=== PATIENT | female | born 1940 | race Caucasian/White ===

== ENCOUNTER 2016-08-25 13:40 | Inpatient (IN) | payer MEDICARE, MEDICAID ==
[~2016-08-25] VITALS: Ht 167.6 cm; Wt 85.8 kg
[2016-08-25] MEDS ORDERED: NS IV 1000 ML 1,000 ML IV SCH (13:44)
[2016-08-25] MEDS ORDERED: ONDANSETRON 4 MG/2 ML (SDV) Z0FRAN IVP PRN (13:45)
[2016-08-25] MEDS ORDERED: fentaNYL INJECTION 100 MCG/2 ML AMP IVP PRN (13:45)
[2016-08-25] MEDS ORDERED: ALPRAZolam 0.25 MG (XANAX) TAB PO PRN (13:45)
[2016-08-25] MEDS ORDERED: ACETAMINOPHEN 500 MG TAB (TYLENOL) PO PRN (13:45)
[2016-08-25] MEDS ORDERED: HYDROcodone/APAP 5 MG/325 MG (LORTAB) TAB PO PRN (13:45)
[2016-08-25 15:50] VITALS: BP 103/57
[2016-08-25] MEDS ORDERED: NOREPINEPHRINE 4 MG/4 ML (LEVOPHED) AMP IV ONE (16:36)
[2016-08-25] MEDS ORDERED: D5W 250 ML (IVPB) 250 ML IV ONE (16:36)
[2016-08-25] MEDS ORDERED: NOREPINEPHRINE 4 MG in D5W 250 ML (IVPB) 250 ML IV SCH (16:45)
--- NOTE | 2016-08-25 16:52 | Diagnostic Imaging Report ---
INDICATION: Hypoxia. FINDINGS: There is mild elevation of the right diaphragm. The heart size is at the upper limits. There is some perihilar congestion and partial atelectasis. No effusion or pneumothorax. IMPRESSION: Upper limits heart size and prominence of the central vascularity as well as some perihilar atelectasis. No focal pneumonia or pleural abnormality. Dictated by: Dictated on workstation # [id number]
[2016-08-25 17:00] VITALS: BP 95/57
[2016-08-25] MEDS ORDERED: RT-ALBUTEROL/IPRATROPIUM 3 ML (DUONEB) VIAL INH PRN (17:00)
[2016-08-25 17:29] LABS: BASOPHILS % (AUTO) 0 % (0-10); EOSINOPHILS % (AUTO) 0 % (0-10); LYMPHOCYTES # (AUTO) 0.9 X 10^3 (1.0-4.0); LYMPHOCYTES % (AUTO) 3 % (12-44); MEAN CORPUSCULAR HEMOGLOBIN 30 PG (25-34); MEAN CORPUSCULAR HGB CONC 32 G/DL (32-36); MEAN CORPUSCULAR VOLUME 95 FL (80-99); MEAN PLATELET VOLUME 11.3 FL (7.4-10.4); MONOCYTES # (AUTO) 1.7 X 10^3 (0.0-1.0); MONOCYTES % (AUTO) 6 % (0-12); NEUTROPHILS # (AUTO) 28.7 X 10^3 (1.8-7.8); NEUTROPHILS % (AUTO) 91 % (42-75); PLATELET COUNT 103 10^3/uL (130-400); RED BLOOD COUNT 4.35 10^6/uL (4.35-5.85); RED CELL DISTRIBUTION WIDTH 14.3 % (10.0-14.5)
[2016-08-25 17:30] LABS: WHITE BLOOD COUNT 31.3 10^3/uL (4.3-11.0)
[2016-08-25] MEDS ORDERED: NS IV 1000 ML 1,000 ML IV ONE (17:30)
[2016-08-25] MEDS ORDERED: ATOR20TA66 PO (17:41)
[2016-08-25] MEDS ORDERED: MEMA28CA PO (17:41)
[2016-08-25] MEDS ORDERED: ACET-2422 PO (17:41)
[2016-08-25] MEDS ORDERED: CETI1TAB61 PO (17:41)
[2016-08-25] MEDS ORDERED: MELO7.5T46 PO (17:41)
[2016-08-25] MEDS ORDERED: MULT1TAB69 PO (17:41)
[2016-08-25] MEDS ORDERED: D50KC PO (17:41)
[2016-08-25] MEDS ORDERED: COCO1000 PO (17:41)
[2016-08-25] MEDS ORDERED: GLUC1CAP37 PO (17:41)
[2016-08-25] MEDS ORDERED: GABA-488 PO (17:41)
[2016-08-25] MEDS ORDERED: POLY119P5 PO (17:41)
[2016-08-25] MEDS ORDERED: SULF200O PO (17:41)
[2016-08-25] MEDS ORDERED: CALC1TAB94 PO (17:41)
[2016-08-25] MEDS ORDERED: LEVO75TA6 PO (17:41)
[2016-08-25 17:43] LABS: ALBUMIN 3.2 G/DL (3.2-4.5); BILIRUBIN,TOTAL 0.5 MG/DL (0.1-1.0); CREATININE SERUM 1.49 MG/DL (0.60-1.30); POTASSIUM 3.5 MMOL/L (3.6-5.0); TOTAL PROTEIN 5.6 G/DL (6.4-8.2)
[2016-08-25 17:49] LABS: BAND NEUTROPHILS 21 %; BASOPHILS % (MANUAL) 0 %; EOSINOPHILS % (MANUAL) 0 %; LYMPHOCYTES % (MANUAL) 1 %; METAMYELOCYTES % 1 %; NEUTROPHILS % (MANUAL) 75 %
[2016-08-25 18:00] VITALS: BP 137/59
[2016-08-25] MEDS ORDERED: ENOXAPARIN 40 MG/0.4 ML (LOVENOX) SYR SC SCH (18:05)
[2016-08-25] MEDS ORDERED: VANCOMYCIN 2000 MG/NS 500 ML IVPB IV NR ×2 (18:09)
--- NOTE | 2016-08-25 18:11 | Pulmonary Consultation ---
History of Present Illness History of Present Illness Date of Consultation 08/25/16 18:06 Date of Admission History of Present Illness 76yo who is normally bedridden and severely demented presented secondary to septic shock. Pt has required pressor support. unable to obtain ROS. I am consulted for CC management. Allergies and Home Medications Allergies Coded Allergies: No Allergy Information Available (Unverified , 08/25/16) Home Medications Lorazepam 2 Mg/1 Ml Oral.conc, 2 MG PO Q3HR, #30 Prescribed by: SHANA SALEH on 08/28/16927 Morphine Sulfate 100 Mg/5 Ml Solution, 5 MG PO Q2H PRN for PAIN, #30 Prescribed by: SHANA SALEH on 08/28/16927 Past Wfyleqq-Uvnaku-Lmwprr Hx Patient Social History Alcohol Use: Denies Use Recreational Drug Use: No Smoking Status: Unknown if Ever Smoked Recent Foreign Travel: No Contact w/Someone Who Travel: No Recent Infectious Disease Expo: No Recent Hopitalizations: No Physical Abuse Screen: No Sexual Abuse: No Seasonal Allergies Seasonal Allergies: No Gastrointestinal Gastrointestinal Disorders: Gastroesophageal Reflux Psychosocial Behavioral Health Disorders: Anxiety, Depression Review of Systems Constitutional: No: Chills, Fever, Malaise, Other, Sweats, Weakness Eyes: No: Conjunctivae inflammation, Eyelid inflammation, Other, Pain, Redness , Vision change ENT: No: Ear discharge, Ear pain, Mouth pain, Mouth swelling, Nose congestion, Nose discharge, Nose pain, Other, Throat pain, Throat swelling Respiratory: SOB with excertion, Shortness of breath, No: Cough, Dry, Hemoptysis, Other, Pleuritic Pain, Sputum, Wheezing, Wheezing Cardiovascular: No: Chest Pain, Edema, Lt Headedness, Orthopnea, Other, Palpitations, Paroxysmal Noc. Dyspnea Gastrointestinal: No: Abdominal Pain, Constipation, Diarrhea, Hematochezia, Melena, Nausea, Other, Vomiting Neurological: Confusion, Weakness Exam Exam Vital Signs Date Time Temp Pulse Resp B/P (MAP) Pulse Ox O2 Delivery O2 Flow Rate FiO2 08/25/16 16:46 94 4.00 08/25/16 16:36 94 08/25/16 15:50 101.8 126 24 103/57 100 Nasal Cannula 6.00 General Appearance: WD/WN, Moderate Distress Neck: Full Range of Motion, Normal Inspection Respiratory: Chest Non Tender, No Accessory Muscle Use, No Respiratory Distress , Decreased Breath Sounds Capillary Refill: Less Than 3 Seconds Gastrointestinal: normal bowel sounds, non tender Neurologic/Psychiatric: Alert, Oriented x3 Skin: Normal Color, Warm/Dry Results Lab Laboratory Tests 08/25/16 17:15 Assessment/Plan Assessment/Plan -Severe Sepsis with UTI -currently on Merrem metabolic encephalopathy -Septic shock -PT is normally nonverbal and bedbound chronic debility I discussed with family pts condition severe septic shock and high mortality rate especially with her chronic debility. Pt is already a DNR. After discussion family including and daughter are in agreement with comfort care only. They do understand pt will probably in 12-24 hrs without medical treatment. They just want her to be comfortable. - Clinical Quality Measures DVT/VTE Risk/Contraindication: Risk Factor Score Per Nursin RFS Level Per Nursing on Admit: 4+=Very High GOPI MOON DO Aug 25, 2016 18:11
[2016-08-25] MEDS ORDERED: PHARMACY TO DOSE IV SCH (18:15)
[2016-08-25] MEDS ORDERED: morphine INJ 4 MG/ML 1 ML (VIAL/SYRINGE) ONE (18:36)
[2016-08-25] MEDS ORDERED: LORazepam INJ 2 MG/ML (ATIVAN) VIAL ONE (18:38)
[2016-08-25] MEDS ORDERED: morphine INJ 4 MG/ML 1 ML (VIAL/SYRINGE) IVP PRN (18:45)
[2016-08-25] MEDS: LORazepam INJ 2 MG/ML (ATIVAN) VIAL IVP PRN ×2 (18:47→23:30)
[2016-08-25] MEDS: morphine INJ 4 MG/ML 1 ML (VIAL/SYRINGE) IVP PRN ×2 (18:47→23:31)
[2016-08-25] MEDS ORDERED: CATHETER FLUSH 10 ML SYR IV PRN (19:00)
[2016-08-25] MEDS ORDERED: RT-ALBUTEROL/IPRATROPIUM 3 ML (DUONEB) VIAL INH SCH (21:00)
[2016-08-25] MEDS ORDERED: MEROPENEM 500 MG in NS (IVPB) 100 ML IV SCH (22:00)
[2016-08-25] MEDS: CATHETER FLUSH 10 ML SYR IV SCH (22:00)
[2016-08-26] MEDS: morphine INJ 4 MG/ML 1 ML (VIAL/SYRINGE) IVP PRN ×7 (01:53→22:40)
[2016-08-26] MEDS: LORazepam INJ 2 MG/ML (ATIVAN) VIAL IVP PRN ×4 (01:53→13:40)
[2016-08-26] MEDS: CATHETER FLUSH 10 ML SYR IV SCH ×3 (01:53→20:45)
--- NOTE | 2016-08-26 08:21 | Pulmonary Progress Note ---
Standard Progress Note Progress Notes PT is very comfortable family at bedside. Assessment & Plan -Severe Sepsis with UTI metabolic encephalopathy -Septic shock -PT is normally nonverbal and bedbound chronic debility Pt is comfort care only now per family request. - GOPI MOON DO Aug 26, 2016 08:21
--- NOTE | 2016-08-26 10:54 | History & Physical-Hospitalist ---
HPI History of Present Illness: HPI/Chief Complaint CC: Septic shock with end of life status HPI: This is a patient that is normally bedridden and severely demented that presented from [facility] due to septic shock that was requiring pressor therapy along with IV fluid resuscitation in need of higher level of care. She was accepted without hesitation was found to be severely debilitated chronically and Dr. Marshall saw the patient in the ICU found her to be end of life and comfort care was initiated and currently she is on protocol showing no signs of discomfort. gi asst: Pt is not alert at all. Pt does not want pt go back to [place]. Pt would not wake up at [place] to drink and pt was dehydrated upon arrival. Patient Interview: Pt is unresponsive. Pt states pt appears to be comfortable. Pt states once in a while pt looks like she may be in pain. Pt family is glad that [facility] accepted her and did all they could for her. Scribed by Sawyer Sifuentes under the direct supervision of Dr. Palmer. Source: family, RN/MD Exam Limitations: clinical condition Date Seen 08/26/16 Attending Physician Toshia Palmer DO PCP No,Local Physician Referring Physician Date of Admission Aug 25, 2016 at 16:04 Home Medications & Allergies Home Medications Reviewed patient Home Medication Reconciliation Form Allergies Allergies Coded Allergies No Allergy Information Available (Unverified08/25/16) Past Ubdvunm-Smeekm-Vnwnfd Hx Patient Social History Marrital Status: Employed/Student: retired Alcohol Use: Denies Use Recreational Drug Use: No Smoking Status: Unknown if Ever Smoked Physical Abuse Screen: No Sexual Abuse: No Recent Foreign Travel: No Contact w/other who traveled: No Recent Hopitalizations: No Recent Infectious Disease Expo: No Seasonal Allergies Seasonal Allergies: No Neurological Hx Neurological Disorders: Yes Neurological Disorders: Dementia Gastrointestinal Gastrointestinal Disorders: Gastroesophageal Reflux Psychosocial Behavioral Health Disorders: Anxiety, Depression Review of Systems ROS-Unable to Obtain: unable to ascertain due to severe dementia and comatose state Constitutional: see HPI Physical Exam Physical Exam Vital Signs Vital Sign - Last 12Hours 08/25/16 15:50 Temp 101.8 Pulse 126 Resp 24 B/P (MAP) 103/57 Pulse Ox 100 O2 Delivery Nasal Cannula O2 Flow Rate 6.00 Capillary Refill : Less Than 3 Seconds General Appearance: No Apparent Distress, Chronically ill, Obese Respiratory: Crackles, Decreased Breath Sounds Cardiovascular: Tachycardia Skin: Cool, Cyanosis, Mottled Results Results/Procedures Lab Laboratory Tests 08/25/16 17:15 Assessment/Plan Admission Diagnosis Assessment: Septic shock likely due to UTI causing end-of-life status Severe dementia with bedridden status Assessment and Plan Plan: Comfort Care Palliative care nurse Support in the end-of-life stage Clinical Quality Measures DVT/VTE Risk/Contraindication: Risk Factor Score Per Nursin RFS Level Per Nursing on Admit: 4+=Very High TOSHIA PALMER DO Aug 26, 2016 10:54
[2016-08-26] MEDS ORDERED: ONDANSETRON 4 MG/2 ML (SDV) Z0FRAN IVP PRN (17:45)
[2016-08-26] MEDS ORDERED: SCOPOLAMINE 1.5 MG (TRANSDERM-SCOP) PATCH TOP SCH (17:45)
[2016-08-26] MEDS ORDERED: BISACODYL 10 MG SUPP (DULCOLAX) PR PRN (17:45)
[2016-08-26] MEDS ORDERED: SALIVA STIMULANT MOUTH SPRAY (BIOTENE) 1.5 OZ MM PRN (17:45)
[2016-08-26] MEDS ORDERED: LORazepam INJ 2 MG/ML (ATIVAN) VIAL IVP PRN (17:45)
[2016-08-26] MEDS ORDERED: ARTIFICAL TEARS 0.4 ML UNIT DOSE (REFRESH PLUS) OU PRN (17:45)
[2016-08-26] MEDS ORDERED: ACETAMINOPHEN 650 MG SUPP (TYLENOL) PR PRN (17:45)
[2016-08-26] MEDS ORDERED: ARTIFICIAL TEARS OINT (LACRI-LUBE) 3.5 GM TUBE OU PRN (17:45)
[2016-08-26] MEDS ORDERED: PROMETHAZINE INJ 25 MG/ML (PHENERGAN) AMP IVP PRN (17:45)
[2016-08-26] MEDS ORDERED: ATROPINE 1% OPHTHALMIC SOLN 2 ML SL PRN (17:45)
[2016-08-26] MEDS ORDERED: RT-ALBUTEROL/IPRATROPIUM 3 ML (DUONEB) VIAL INH PRN (17:45)
[2016-08-26] MEDS ORDERED: morphine INJ 4 MG/ML 1 ML (VIAL/SYRINGE) IV PRN (17:45)
[2016-08-26] MEDS: GLYCOPYRROLATE 0.2 MG/ML (ROBINUL) 2 ML VIAL IV PRN ×2 (17:57→22:41)
[2016-08-26] MEDS ORDERED: VANCOMYCIN 1250 MG/NS 250 ML IVPB IV SCH ×2 (19:00)
[2016-08-27] MEDS: CATHETER FLUSH 10 ML SYR IV SCH ×3 (05:34→22:36)
--- NOTE | 2016-08-27 11:54 | Progress Note-Hospitalist ---
Progress Note HPI/CC on Admission CC: Septic shock with end of life status HPI: This is a patient that is normally bedridden and severely demented that presented from [facility] due to septic shock that was requiring pressor therapy along with IV fluid resuscitation in need of higher level of care. She was accepted without hesitation was found to be severely debilitated chronically and Dr. Marshall saw the patient in the ICU found her to be end of life and comfort care was initiated and currently she is on protocol showing no signs of discomfort. service center technician: Pt is not alert at all. Pt does not want pt go back to [place]. Pt would not wake up at [place] to drink and pt was dehydrated upon arrival. Patient Interview: Pt is unresponsive. Pt states pt appears to be comfortable. Pt states once in a while pt looks like she may be in pain. Pt family is glad that [facility] accepted her and did all they could for her. Scribed by Sawyer Sifuentes under the direct supervision of Dr. Palmer. Progress Notes/Assess & Plan Date Seen 08/27/16 Admission Dx/Process Assessment: Septic shock likely due to UTI causing end-of-life status Severe dementia with bedridden status Diagonsis/Assessment & Plan service center technician: Pt appears to be comfortable. Pt swelling is going down. Scopolamine patch helped pt. SW Review: This may go on for a while. Pt needs to go to [place] Patient Interview: Physical exam was stable. Pt states she feels like she is comfortable. Pt is having a hard time emotionally. Scribed by Sawyer Sifuentes under the direct supervision of Dr. Palmer. Unresponsive, multiple family members in the room Tachypnea noted but very mild Assessment: Multisystem organ failure due to severe sepsis from gram-negative source Severe dementia Plan: Comfort Care Palliative care nurse Support in the end-of-life stage SHANA PALMER DO Aug 27, 2016 11:54
[2016-08-27] MEDS: morphine INJ 4 MG/ML 1 ML (VIAL/SYRINGE) IVP PRN (14:52)
[2016-08-28] MEDS: CATHETER FLUSH 10 ML SYR IV SCH ×2 (06:30→15:19)
[2016-08-28] MEDS ORDERED: MORP100S3 PO (09:28)
[2016-08-28] MEDS ORDERED: LORA2ORA PO (09:28)
--- NOTE | 2016-08-28 10:33 | Discharge Summary-Hospitalist ---
Diagnosis/Chief Complaint Date of Admission Aug 25, 2016 at 16:04 Date of Discharge Admission Diagnosis Assessment: Septic shock likely due to UTI causing end-of-life status Severe dementia with bedridden status Discharge Diagnosis Assessment: Septic shock likely due to UTI causing end-of-life status Severe dementia with bedridden status audio video mechanic: Pt appears to be comfortable. Pt swelling is going down. Scopolamine patch helped pt. SW Review: This may go on for a while. Pt needs to go to [place] Patient Interview: Physical exam was stable. Pt states she feels like she is comfortable. Pt is having a hard time emotionally. Scribed by Sawyer Sifuentes under the direct supervision of Dr. Saleh. Unresponsive, multiple family members in the room Tachypnea noted but very mild Assessment: Multisystem organ failure due to severe sepsis from gram-negative source Severe dementia Plan: Comfort Care Palliative care nurse Support in the end-of-life stage Reason Hospital Visit/Course CC: Septic shock with end of life status HPI: This is a patient that is normally bedridden and severely demented that presented from [facility] due to septic shock that was requiring pressor therapy along with IV fluid resuscitation in need of higher level of care. She was accepted without hesitation was found to be severely debilitated chronically and Dr. Marshall saw the patient in the ICU found her to be end of life and comfort care was initiated and currently she is on protocol showing no signs of discomfort. audio video mechanic: Pt is not alert at all. Pt does not want pt go back to [place]. Pt would not wake up at CT to drink and pt was dehydrated upon arrival. Patient Interview: Pt is unresponsive. Pt states pt appears to be comfortable. Pt states once in a while pt looks like she may be in pain. Pt family is glad that [facility] accepted her and did all they could for her. Scribed by Sawyer Sifuentes under the direct supervision of Dr. Saleh. audio video mechanic: Pt has not received pain meds. Pt family will let RN know if they want her to receive pain meds. Patient Interview: Pt daughter and states they are willing to take pt home. Pt family is concerned that they may not be able to care for pt like staff at [facility] can. Scribed by Sawyer Sifuentes under the direct supervision of Dr. Saleh. Hospital course patient had an uneventful hospital course but she was placed on comfort care and of life due to the severe dementia and septic shock and multisystem organ failure so family arranged for hospice enrollment and overall they were very pleased with the comfort we provided them and the patient during the hospital course and she was discharged uneventfully for imminent process. Discharge Summary Discharge Physical Examination Allergies: Coded Allergies: No Allergy Information Available (Unverified , 08/25/16) Vitals & I&Os Vital Signs Date Time Temp Pulse Resp B/P (MAP) Pulse Ox O2 Delivery O2 Flow Rate FiO2 08/28/16 09:00 Room Air 08/27/16 07:01 88 08/26/16 09:00 6.00 08/25/16 18:00 116 17 137/59 08/25/16 15:50 101.8 Discharge Home Medications: Active Scripts Active Lorazepam Intensol (Lorazepam) 2 Mg/1 Ml Oral.conc 2 Mg PO Q3HR Morphine Sulfate Concentrate 20mg/ml (Morphine Sulfate) 100 Mg/5 Ml Solution 5 Mg PO Q2H PRN Reported Gabapentin 300 Mg Capsule 300 Mg PO TID Acetaminophen ER (Acetaminophen) 650 Mg Tablet.er 650 Mg PO Q8H TAKES FOR ARTHRITIC PAIN IN LEFT ARM / NOT TO EXCEED MORE THAN 3GM/24HR Zyrtec-D Tablet (Cetirizine HCl/Pseudoephedrine) 1 Each Tab.er.12h 1 Tab PO DAILY Vitamin D2 (Ergocalciferol (Vitamin D2)) 50,000 Unit Capsule 50,000 Units PO WEEK TAKES ON SUNDAYS Bactrim Suspension 200MG/40MG/5ML (Sulfamethoxazole/Trimethoprim) 10 Ml Susp 5 Ml PO DAILY Namenda Xr (Memantine HCl) 28 Mg Cap.spr.24 28 Mg PO DAILY Multivitamins (Multivitamin) 1 Each Tablet 1 Tab PO DAILY Meloxicam 7.5 Mg Tablet 7.5 Mg PO DAILY Miralax (Polyethylene Glycol 3350) 119 Gm Powder 17 Gm PO DAILY Atorvastatin Calcium 20 Mg Tablet 20 Mg PO HS Levothyroxine Sodium 75 Mcg Tablet 75 Mcg PO DAILY@0630 Glucosamine & Chondroitin Cap (Glucosa Sutton 2Kcl/Chondroitin Sutton) 1 Each Capsule 1 Cap PO DAILY Coconut Oil 1,000 Mg Capsule 1,000 Mg PO DAILY Calcium 600 + Vit D 400 Tablet (Calcium Carbonate/Vitamin D3) 1 Each Tablet 1 Tab PO DAILY Instructions to patient/family Please see electonic discharge instructions given to patient. Clinical Quality Measures DVT/VTE Risk/Contraindication: Risk Factor Score Per Nursin RFS Level Per Nursing on Admit: 4+=Very High SHANA SALEH DO Aug 28, 2016 10:33
[2016-08-28] MEDS: LORazepam INJ 2 MG/ML (ATIVAN) VIAL IVP PRN (15:34)
[2016-08-28] MEDS ORDERED: TROUGH ORDER-PHARMACY XX NR (18:00)
[2016-08-29] MEDS ORDERED: SCOPOLAMINE PATCH REMOVAL TP SCH (17:44)
--- OUTSIDE RECORDS SUMMARY | 2016-09-28 06:27 | XMS REPORT ---
Author Author MATIAS ROBERTO Organization [employer] Address Unknown Phone Unavailable Care Team Providers Care Senior Stack Engineer Name Role Phone MATIAS ROBERTO CP Unavailable Allergies, Adverse Reactions, Alerts Substance Reaction Event Type N.K.D.A. Info Not Available Non Drug Allergy Problems No Known Problems Medications Medication Code System Code Instructions Start Date End Date Status Dosage Fish Oil [facility] [address]-06 500 MG Orally Twice a day 1 capsule Multivitamin [facility] 10417-56349 - Orally Once a day not defined Levothyroxine Sodium [facility] [address]-08 75 MCG Orally Once a day 1 tablet on an empty stomach in the morning Meloxicam [facility] [address]-98 7.5 MG Orally Once a day 1 tablet Acetaminophen ER [facility] 60592-06968 650 MG Orally 3 times a day 1 tablet Namenda XR [facility] [address]-40 28 MG Orally Once a day 1 capsule MiraLax [facility] [address]-91 17 gm/dose Orally Once a day 17 grams mixed in 8 oz of water or juice Glucosamine Chondr Complex [facility] [address]-17 500-400 MG Orally Once a day 1 capsule with a meal Loratadine [facility] [address]-17 10 MG Orally Once a day 1 tablet Lipitor [facility] [address]-90 20 MG Orally Once a day 1 tablet Vitamin D [facility] [address]-53 1000 UNIT Orally Once a day 1 tablet Gabapentin [facility] [address]-28 300 MG Orally Three times a day 1 capsule Calcium 600+D [facility] 94501-11779 600-400 MG-UNIT Orally Once a day 1 tablet with food Results No Known Results Summary Purpose [employer] Submission
--- OUTSIDE RECORDS SUMMARY | 2016-09-28 06:27 | XMS REPORT ---
Author MATIAS [facility] [employer] Address Unknown Phone Unavailable Care Team Providers Care Handbag Parts Cutter Name Role Phone MATIAS ROBERTO CP Unavailable Allergies, Adverse Reactions, Alerts Substance Reaction Event Type N.K.D.A. 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 behavioral disturbance F02.80 Active Assessment Alzheimers disease, unspecified G30.9 Active Medications Medication Code System Code Instructions Start Date End Date Status Dosage MiraLax [facility] [address]-59 17 gm/dose Orally Once a day 17 grams mixed in 8 oz of water or juice Namenda XR [facility] [address]-45 28 MG Orally Once a day 1 capsule Loratadine [facility] [address]-24 10 MG Orally Once a day 1 tablet Acetaminophen ER [facility] 26315-58160 650 MG Orally 3 times a day 1 tablet Lipitor [facility] [address]-52 20 MG Orally Once a day 1 tablet Multivitamin [facility] 65046-41404 - Orally Once a day not defined Levothyroxine Sodium [facility] [address]-50 75 MCG Orally Once a day 1 tablet on an empty stomach in the morning Glucosamine Chondr Complex [facility] [address]-19 500-400 MG Orally Once a day 1 capsule with a meal Fish Oil [facility] [address]-23 500 MG Orally Twice a day 1 capsule Ativan [facility] [address]-73 0.5 MG Orally every 6 hrs 1 tablet as needed Gabapentin [facility] [address]-62 300 MG Orally Three times a day 1 capsule Calcium 600+D [facility] 46275-31018 600-400 MG-UNIT Orally Once a day 1 tablet with food Meloxicam [facility] [address]-35 7.5 MG Orally Once a day 1 tablet Vitamin D [facility] [address]-24 1000 UNIT Orally Once a day 1 tablet Bactrim [facility] [address]-23 200-40 MG/5ML Orally 2 times a day 7.5 ml Procedures Procedure Coding System Code Date Office Visit, New Pt., Level 2 CPT-4 64997 Jan 15, 2016 Results No Known Results Summary Purpose [employer] Submission
--- OUTSIDE RECORDS SUMMARY | 2016-09-28 06:27 | XMS REPORT | Continuity of Care Document ---
Author Author [facility] Address Unknown Phone Unavailable Allergies Medications Problems Procedures Results Encounters ACCT No. Visit Date/Time Discharge Status Pt. Type Provider Facility Loc./Unit Complaint [id number] 03/13/2015 15:05:22 03/13/2015 23: 59:59 CLS Outpatient Parish Serrano
--- OUTSIDE RECORDS SUMMARY | 2016-09-28 06:27 | XMS REPORT ---
Author Author [facility] Medical Staff Organization [facility] Address [address] [place] [id number] Phone [phone] Summary purpose TRANSITION OF CARE AUTO GENERATION Chief Complaint and Reason for Visit No authorized Reason for Visit (Admitting Diagnosis) is available for this visit. Problem list No authorized problems tracked for continuity of care are available for this visit. Encounters No authorized problems tracked for encounter diagnoses are available for this visit. Medications No medications recorded for this patient visit Allergies, adverse reactions, alerts No allergy information is available for this patient. Immunizations No immunizations recorded for this patient visit Relevant diagnostic tests and/or laboratory data RESULTS Radiology Results [id number] Chest X-Ray - 2 View PACs Image DATE OF EXAM: Nov 06 2015 RAD 0300-CHEST XRAY 2 VIEW : RADIOLOGY REPORT DATE OF SERVICE: 11/06/15 HISTORY: Cough, suspected aspiration CHEST 2 VIEWS 0840 HOURS Inspiration is suboptimal. There is mild linear atelectasis or thickening within the right minor fissure. No alveolar lung infiltrates are noted. There is cardiomegaly. Pulmonary vessels are normal. IMPRESSION: Cardiomegaly. Right lung atelectasis versus thickening in the minor fissure. No other acute chest process. Parish Peters MD [facility]/ny11/06/2015 09:49:00 / 11/06/2015 10:00:24 cc:Dr. Byron Friedman This document has been electronically Signed by: On: DATE OF EXAM: Nov 06 2015 RAD 0300-CHEST XRAY 2 VIEW : RADIOLOGY REPORT DATE OF SERVICE: 11/06/15 HISTORY: Cough, suspected aspiration CHEST 2 VIEWS 0840 HOURS Inspiration is suboptimal. There is mild linear atelectasis or thickening within the right minor fissure. No alveolar lung infiltrates are noted. There is cardiomegaly. Pulmonary vessels are normal. IMPRESSION: Cardiomegaly. Right lung atelectasis versus thickening in the minor fissure. No other acute chest process. Parish Peters MD [facility]/nh11/06/2015 09:49:00 / 11/06/2015 10:00:24 cc:Dr. Byron Friedman This document has been electronically Signed by: PARISH PETERS MD On: Nov 06 20154:09P Result Amended on 2015-11-06 at 16:09:54. Previous status was [place]. History of procedures Procedure Code Code Type Description Date Performed Performing Physician 24897 CPT-4 CHEST X-RAY 11-06-2015 BYRON FRIEDMAN Functional status No functional or cognitive status observations are available for this visit. Vital signs No authorized vital signs are available for this visit. Social history No Social History or smoking status observations were recorded for this visit. ( Unknown if ever smoked.) Treatment Plan No treatment plan text is available for this visit. Hospital discharge instructions No discharge instruction text is available for this visit.
--- OUTSIDE RECORDS SUMMARY | 2016-09-28 06:28 | XMS REPORT ---
Author Author Parish Serrano [facility] Address [address] [place], [place] [id number] Care Team Providers Care Olive Packer Name Role Phone Parish Serrano PCP Unavailable Allergies and Adverse Reactions Name Reaction Notes NO KNOWN DRUG ALLERGIES Plan of Treatment Not available. Medications Active Name Start Date Estimated Completion Date SIG Comments ascorbic acid 500 mg oral tablet take 1 tablet by oral route daily Calcium 600 + D(3) 600 mg(1,500mg) -400 unit oral tablet take 1 tablet by oral route daily glucosamine-chondroitin 500-400 mg oral capsule take 1 capsule by oral route daily levothyroxine 75 mcg oral tablet take 1 tablet (75 mcg) by oral route once daily loratadine 10 mg oral tablet take 1 tablet (10 mg) by oral route once daily Miralax 17 gram oral powder in packet take 1 packet (17 gram) mixed with 8 oz. water, juice, soda, coffee or tea by oral route once daily Mobic 7.5 mg oral tablet take 1 tablet (7.5 mg) by oral route once daily multivitamin oral tablet take 1 tablet by oral route daily Namenda XR 28 mg oral capsule,sprinkle,ER 24hr take 1 capsule (28 mg) by oral route once daily Remeron 15 mg oral tablet take 1 tablet (15 mg) by oral route once daily before bedtime sulfamethoxazole-trimethoprim 200-40 mg/5 mL oral suspension take 5 milliliters by oral route daily Vitamin D2 50,000 unit oral capsule take 1 capsule (50,000 unit) by oral route once weekly Fish Oil Concentrate 1,000 mg oral capsule take 1 capsule by oral route 2 times a day gabapentin 300 mg oral capsule take 1 capsule (300 mg) by oral route 3 times per day Name Start Date Expiration Date SIG Comments acyclovir 800 mg oral tablet 01/15/2010 01/20/2010 take 1 tablet (800 mg) by oral route 4 times a day for 5 days Bactrim DS 800-160 mg oral tablet 07/02/2010 07/09/2010 take 1 tablet by oral route 2 times per day for 7 days Discontinued Name Start Date Discontinued Date SIG Comments Aricept 10 mg oral tablet 06/13/2009 08/21/2009 take 1 tablet (10 mg) by oral route once daily in the evening for 30 days Exelon 4.6 mg/24 hr transdermal patch 24 hour 02/26/2010 04/15/2010 apply 1 patch (4.6 mg) by transdermal route once daily for 30 days Fish Oil 1,000 mg oral capsule 03/14/2015 take 1 capsule by oral route 2 times a day Multivitamin Oral Tablet 03/14/2015 take 1 tablet by oral route once daily with food glucosamine-chondroitin 750-600 mg oral tablet 03/14/2015 take 1 tablet by oral route daily Zoloft 50 mg oral tablet 07/02/2010 03/14/2015 take 1 tablet (50 mg) by oral route once daily Namenda 10 mg oral tablet 07/04/2010 03/14/2015 take 1 tablet (10 mg) by oral route 2 times per day Aricept 10 mg oral tablet 07/04/2010 03/14/2015 take 1 tablet (10 mg) by oral route once daily in the evening Super B Complex Oral Capsule 03/14/2015 take 1 capsule by oral route daily Vitamin D2 50,000 unit oral capsule 10/01/2010 03/14/2015 take 1 capsule (50, 000 unit) by oral route once weekly acetaminophen 500 mg oral tablet 10/01/2010 03/14/2015 take 2 tablets (1,000 mg) by oral route every 4 hours as needed not to exceed 8 tablets per 24hrs Problem List Description Status Onset Alzheimer's Disease Active Anemia Active Constipation Active Dizziness Active Osteoarthritis Active Gastritis Active Vitamin D deficiency Active 04/22/2010 Anxiety Active Hypothyroidism Active Hypocalcemia Active Allergic rhinitis Active Vital Signs Date Time BP-Sys(mm[Hg] BP-Linda(mm[Hg]) HR(bpm) RR(rpm) Temp WT HT HC BMI BSA BMI Percentile O2 Sat(%) 06/12/2011 3:41:00 PM 124 mmHg 80 mmHg 88 bpm 175 lbs 62 in 32.01 kg/m2 1.86 m2 98 % 05/16/2011 8:03:00 AM 122 mmHg 64 mmHg 60 bpm 179 lbs 62 in 32.7392 kg/m 1.8846 m 98 % 10/01/2010 3:44:00 PM 150 mmHg 88 mmHg 72 bpm 18 rpm 98 F 164.125 lbs 62 in 30.02 kg/m2 1.80 m2 95 % 07/22/2010 2:06:00 PM 80 mmHg 66 bpm 18 rpm 96.8 F 168 lbs 62 in 30.7273 kg/m 1.8258 m 99 % 07/02/2010 8:23:00 AM 160 mmHg 78 mmHg 80 bpm 18 rpm 98 F 173.375 lbs 62 in 31.71 kg/m2 1.85 m2 97 % 04/22/2010 8:41:00 AM 150 mmHg 80 mmHg 65 bpm 18 rpm 97.8 F 171.125 lbs 62 in 31.2989 kg/m 1.8427 m 95 % 03/18/2010 3:39:00 PM 140 mmHg 90 mmHg 87 bpm 16 rpm 98.6 F 168.5 lbs 62 in 30.82 kg/m2 1.83 m2 98 % Social History Name Description Comments denies alcohol use Denies illicit substance abuse Quit Smoking 1975 Exercises regularly 9th grade 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 Reviewed 03/18/2010 12:00 AM COMPLETE CBC W/AUTO DIFF WBC Reviewed 03/18/2010 12:00 AM ASSAY THYROID STIM HORMONE Reviewed 03/18/2010 12:00 AM VITAMIN D 25 HYDROXY Reviewed 03/18/2010 12:00 AM VITAMIN B-12 Reviewed 03/18/2010 12:00 AM ORGANIC ACID SINGLE QUANT Reviewed 03/18/2010 12:00 AM ASSAY OF FREE THYROXINE Reviewed 07/22/2010 12:00 AM VITAMIN D 25 HYDROXY Reviewed 07/01/2010 12:00 AM URINALYSIS NONAUTO W/SCOPE Reviewed 10/01/2010 12:00 AM URINALYSIS NONAUTO W/SCOPE Reviewed 10/01/2010 12:00 AM THER/PROPH/DIAG INJ SC/IM Reviewed 10/01/2010 12:00 AM Toradol 15 Mg,Wac#[address]-13 (Seb) Reviewed Results Summary Data and Description Results 09/28/2007 12:00 AM Colonoscopy-Women and Men over 50 Normal 02/27/2009 12:00 AM Mammogram -Women over 40 Normal 02/04/2010 12:00 AM Cholest Cry Stone Ql IR 248.0 %LDLc SerPl-mCnc 166.0 mg/ dLHDLc SerPl-mCnc 61.0 mg/dLTrigl SerPl-mCnc 107.0 mg/dLGlucose SerPl-mCnc 103.0 mg/dL 03/18/2010 3:49 PM Pap Smear Declined 03/18/2010 3:52 PM HIV1+2 Ab Ser Ql no risk 03/18/2010 3:53 PM Depression Done 03/18/2010 4:26 PM Mammogram -Women over 40 Declined 03/18/2010 4:26 PM Cholest Cry Stone Ql IR 0.0 %LDLc SerPl-mCnc 0.0 mg/dLHDLc SerPl-mCnc 0.0 mg/dLTrigl SerPl-mCnc 0.0 mg/dLGlucose SerPl-mCnc 0.0 mg/dLDexa Bone Scan Refused 03/18/2010 5:06 PM TSH 1.620 uIU/mLVITAMIN B12 699.0 pg/mLWBC 6.7 RBC 5.12 HGB 12.50 g/dLHCT 40.20 %MCV 79.0 fLMCH 24.40 pgMCHC 31.10 g/dLRDW CV 15.20 % MPV 10.30 fLPLT 201 %NEUT 60.20 %%LYMP 30.10 %%MONO 6.60 %%EOS 2.50 %%BASO 0.60 %#NEUT 4.01 #LYMP 2.01 #MONO 0.44 #EOS 0.17 #BASO 0.04 07/02/2010 8:20 AM COLOR YELLOW APPEARANCE CLEAR SPEC GRAV >1.030 pH 6.5 PROTEIN NEGATIVE GLUCOSE NEGATIVE KETONE NEGATIVE BILIRUBIN NEGATIVE BLOOD NEGATIVE NITRITE NEGATIVE LEUK SCREEN MODERATE CASTS/LPF NEGATIVE CRYSTALS NEGATIVE MUCOUS THRDS NEGATIVE BACTERIA 2++ EPITH CELLS FEW SQUAMOUS TRICHOMONAS NEGATIVE YEAST NEGATIVE 10/01/2010 3:20 PM COLOR YELLOW APPEARANCE CLEAR SPEC GRAV >=1.030 pH 6.0 PROTEIN NEGATIVE GLUCOSE NEGATIVE KETONE TRACE BILIRUBIN NEGATIVE BLOOD NEGATIVE NITRITE NEGATIVE LEUK SCREEN NEGATIVE CASTS/LPF NEGATIVE CRYSTALS TRACE TRIPHOS MUCOUS THRDS NEGATIVE BACTERIA FEW EPITH CELLS FEW SQUAMOUS TRICHOMONAS NEGATIVE YEAST NEGATIVE History Of Immunizations Name Date Admin Mfg Name Mf Code Trade Name Lot# Route Inj Vis Given Vis Pub CVX Influenza 03/18/2010 [employer] Vasquez. NOV Fluvirin > 12 Years [id number] Intramuscular Left Deltoid 03/18/2010 01/02/2009 999 History of Past Illness Name Date of Onset Comments Dizziness Anemia Constipation Gastritis Alzheimer's Disease early. 1 1/2 yrs ago Osteoarthritis Anxiety Other malignant neoplasm of skin; site unspecified lower lip Vitamin D deficiency 04/22/2010 Flu Mar 18 2010 4:19PM Alzheimer's Disease Mar 18 2010 4:45PM Fatigue Mar 18 2010 4:45PM Vitamin D Deficiency Apr 22 2010 8:35AM Alzheimer's Disease Apr 22 2010 8:35AM Dizziness Apr 22 2010 8:35AM Osteoarthritis Apr 22 2010 8:35AM Hypothyroidism Hypocalcemia Allergic rhinitis Dysuria Jul 01 2010 3:13PM UTI Jul 02 2010 8:37AM Alzheimer's Disease Jul 02 2010 8:37AM Alzheimer's Disease Jul 22 2010 2:19PM Cystitis Oct 01 2010 12:10PM Back Pain with Radiation Oct 01 2010 3:52PM Tinea Cruris May 16 2011 8:05AM Alzheimer's Disease Jun 12 2011 3:43PM Benign Neoplasm Of Skin Of Face Mar 14 2015 1:36PM Payers Insurance Name Company Name Plan Name Plan Number Policy Number Policy Group Number Start Date Medicare Part B Medicare Of [place] [id number] N/A [place] [facility] Prog [id number] N/A Medicare Part A Medicare Part A [id number] N/A History of Encounters Visit Date Visit Type Provider 03/13/2015 Procedures Parish Serrano MD 06/12/2011 Office visit PARISH CLAUDIO 05/16/2011 Office visit PARISH CLAUDIO 10/01/2010 Office visit Parish Grigsby DO 07/22/2010 Office visit Parish Grigsby DO 07/02/2010 Office visit Parish Grigsby DO 04/22/2010 Office visit Parish Grigsby DO 03/18/2010 Office visit Parish Grigsby DO 07/26/2009 Office visit Parish Birch PA-C 06/12/2009 Laboratory Judy George MD 02/21/2009 Office visit PARISH CLAUDIO 01/19/2009 Office visit PARISH CLAUDIO
--- OUTSIDE RECORDS SUMMARY | 2016-09-28 06:28 | XMS REPORT ---
Author MATIAS [facility] eClinicalWorks Address Unknown Phone Unavailable Care Team Providers Care Provider Education Specialist Name Role Phone MATIAS ROBERTO CP Unavailable Allergies, Adverse Reactions, Alerts Substance Reaction Event Type N.K.D.A. 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 behavioral disturbance F02.80 Active Assessment Pneumonia of both lungs due to infectious organism, unspecified part of lung J18.9 Active Assessment Alzheimers disease, unspecified G30.9 Active Medications Medication Code System Code Instructions Start Date End Date Status Dosage Avelox [facility] [address]-61 400 MG Orally Once a day Apr 01, 2016 Apr 08, 2016 1 tablet Vitamin D [facility] [address]-29 1000 UNIT Orally Once a day 1 tablet Levothyroxine Sodium [facility] [address]-19 75 MCG Orally Once a day 1 tablet on an empty stomach in the morning Glucosamine Chondr Complex [facility] [address]-36 500-400 MG Orally Once a day 1 capsule with a meal Lipitor [facility] [address]-39 20 MG Orally Once a day 1 tablet Namenda XR [facility] [address]-72 28 MG Orally Once a day 1 capsule Loratadine [facility] [address]-83 10 MG Orally Once a day 1 tablet MiraLax [facility] [address]-66 17 gm/dose Orally Once a day 17 grams mixed in 8 oz of water or juice Ativan [facility] [address]-32 0.5 MG Orally every 6 hrs 1 tablet as needed Bactrim [facility] [address]-61 200-40 MG/5ML Orally 2 times a day 7.5 ml Multivitamin [facility] [address] - Orally Once a day not defined Gabapentin [facility] [address]-47 300 MG Orally Three times a day 1 capsule Meloxicam [facility] [address]-89 7.5 MG Orally Once a day 1 tablet Fish Oil [facility] [address]-87 500 MG Orally Twice a day 1 capsule Acetaminophen ER [facility] [address] 650 MG Orally 3 times a day 1 tablet Calcium 600+D [facility] [address] 600-400 MG-UNIT Orally Once a day 1 tablet with food Procedures Procedure Coding System Code Date Minor complication (15 mins) CPT-4 94632 Apr 01, 2016 Results No Known Results Summary Purpose eClinicalWorks Submission
--- OUTSIDE RECORDS SUMMARY | 2016-09-28 06:28 | XMS REPORT ---
Author Author [facility] Medical Staff Organization [facility] [employer] [facility] Address [address] [place] [id number] Phone [phone] Summary purpose TRANSITION OF CARE AUTO GENERATION [...] tests and/or laboratory data RESULTS Radiology Results [id number] Chest X-Ray - 2 View PACs Image [...] other acute chest process. Parish Peters MD [facility]/mn11/06/2015 09:49:00 / 11/06/2015 10:00:24 cc:Dr. Kellen Friedman This document has been electronically Signed [...] MD [facility]/nh11/06/2015 09:49:00 / 11/06/2015 10:00:24 cc:Dr. Kellen Friedman This document has been electronically Signed by: PARISH PETERS MD On: Nov 05:09P Result Amended on 2015-11-06 at 16:09:54. Previous status was SD. History of procedures No procedures recorded for this patient visit. Functional status No functional or cognitive status [...]
--- OUTSIDE RECORDS SUMMARY | 2016-09-28 06:28 | XMS REPORT ---
Author Author MATIAS ROBERTO [facility] eClinicalWorks Address Unknown Phone Unavailable Care Team Providers Care Alumnae Secretary Name Role Phone MATIAS ROBERTO CP Unavailable Allergies No Known Allergies Problems No Known Problems Medications No Known Medications Results No Known Results Summary Purpose eClinicalWorks Submission
--- OUTSIDE RECORDS SUMMARY | 2016-09-28 06:28 | XMS REPORT ---
Author MATIAS Stanford [facility] eClinicalWorks Address Unknown Phone Unavailable Care Team Providers Care Welder Tack Name Role Phone MATIAS ROBERTO CP Unavailable Allergies, Adverse Reactions, Alerts Substance Reaction Event Type N.K.D.A. 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 behavioral disturbance F02.80 Active Assessment Alzheimers disease, unspecified G30.9 Active Medications Medication Code System Code Instructions Start Date End Date Status Dosage Glucosamine Chondr Complex [facility] [address]-46 500-400 MG Orally Once a day 1 capsule with a meal Levothyroxine Sodium [facility] [address]-92 75 MCG Orally Once a day 1 tablet on an empty stomach in the morning Ativan [facility] [address]-54 0.5 MG Orally every 6 hrs 1 tablet as needed MiraLax [facility] [address]-16 17 gm/dose Orally Once a day 17 grams mixed in 8 oz of water or juice Bactrim [facility] [address]-82 200-40 MG/5ML Orally 2 times a day 7.5 ml Loratadine [facility] [address]-01 10 MG Orally Once a day 1 tablet Gabapentin [facility] [address]-30 300 MG Orally Three times a day 1 capsule Acetaminophen ER [facility] [address] 650 MG Orally 3 times a day 1 tablet Namenda XR [facility] [address]-10 28 MG Orally Once a day 1 capsule Vitamin D [facility] [address]-23 1000 UNIT Orally Once a day 1 tablet Multivitamin [facility] [address] - Orally Once a day not defined Fish Oil [facility] [address]-06 500 MG Orally Twice a day 1 capsule Calcium 600+D [facility] [address] 600-400 MG-UNIT Orally Once a day 1 tablet with food Lipitor [facility] [address]-82 20 MG Orally Once a day 1 tablet Meloxicam [facility] [address]-97 7.5 MG Orally Once a day 1 tablet Procedures Procedure Coding System Code Date Stable Visit (10 minutes) CPT-4 49140 Mar 04, 2016 Results No Known Results Summary Purpose eClinicalWorks Submission
== END 2016-08-28 16:10 | disposition hospice, home (50) | DRG 871 ==
LOC: ICU 16:04 → 4TH 08-26 08:55
PROVIDERS: ADMIT Internal Medicine; ATTEND Internal Medicine
DX: A41.9 Sepsis, unspecified organism (principal); R65.21 Severe sepsis with septic shock; N39.0 Urinary tract infection, site not specified; G93.41 Metabolic encephalopathy; E86.0 Dehydration; F03.90 Unspecified dementia, unspecified severity, without behavioral disturbance, psychotic disturbance, mood disturbance, and anxiety; Z66 Do not resuscitate; Z51.5 Encounter for palliative care; Z74.01 Bed confinement status; F41.9 Anxiety disorder, unspecified
CPT/HCPCS: 36415; 71010; 80053; 83605; 83880; 85007; 85027; 94760